=== PATIENT | male | born 1985 | race Caucasian/White ===

== ENCOUNTER 2020-06-27 15:00 | Emergency (ER) | payer OTHER ==
[2020-06-27 16:32] LABS: BASOPHIL 0.4 % (0-2); EOSINOPHIL 0.3 % (0-5); HCT 50.9 % (42.0-52.0); HGB 16.3 g/dl (13.2-18.0); LYMPHOCYTE 15.1 % (15-48); MCH 29.1 pg (25.0-31.0); MCV 90.7 fL (78.0-100.0); MONOCYTE 7.9 % (0-12); MPV 10.3 fL (6.0-9.5); NEUTROPHIL 75.6 % (41-80); NRBC 0; PLT 295 K/uL (150-400); RBC 5.61 M/uL (4.70-6.00); RDW 12.5 % (11.5-14.0)
[2020-06-27 16:33] LABS: ALBUMIN 3.8 g/dL (3.4-5.0); ALKALINE PHOSHATASE 105 U/L (46-116); ALT 54 U/L (16-63); AST 34 U/L (15-37); BILIRUBIN - TOTAL 0.2 mg/dL (0.2-1.0); BUN 14 mg/dL (7-18); BUN/CREAT RATIO (CALC) 13.5 RATIO; CHLORIDE 104 mmol/L (98-107); CO2 (BICARBONATE) 25 mmol/L (21-32); CREATININE 1.04 mg/dL (0.67-1.17); GLUCOSE 89 mg/dL (74-106); POTASSIUM 4.2 mmol/L (3.5-5.1); TOTAL PROTEIN 7.8 g/dL (6.4-8.2)
[2020-06-27 17:27] LABS: BILIRUBIN NEGATIVE (NEGATIVE); BLOOD NEGATIVE Ery/uL (NEGATIVE); CLARITY CLEAR (CLEAR); COLOR YELLOW (YELLOW); GLUCOSE (U) NORMAL (NORMAL); LEUKOCYTES NEGATIVE Leu/uL (NEGATIVE); NITRITE NEGATIVE (NEGATIVE); PROTEIN TRACE (LOW) mg/dL (NEGATIVE); SPECIFIC GRAVITY >=1.030 (1.001-1.030); UROBILINOGEN 0.2 mg/dL (0.2-1.0); pH 5.5 (5.0-9.0)
[2020-06-27 17:33] LABS: AMPHETAMINES NEGATIVE (NEGATIVE); BARBITURATES NEGATIVE (NEGATIVE); ECSTASY (MDMA) NEGATIVE (NEGATIVE); MARIJUANA (THC) NEGATIVE (NEGATIVE); METHADONE NEGATIVE (NEGATIVE); OPIATES NEGATIVE (NEGATIVE); OXYCODONE NEGATIVE (NEGATIVE)
[2020-06-27 17:36] LABS: BACTERIA TRACE; SPERM PRESENT; SQUAMOUS EPITHELIAL CELLS RARE; URINARY RBC RARE; URINARY WBC RARE
[2020-06-27] MEDS ORDERED: TEGRETOL200 MG PO (18:20)
== END 2020-06-27 19:09 | disposition home or self-care (01) ==
LOC: FER 15:00
PROVIDERS: Emergency Medicine
DX: S09.90XA Unspecified injury of head, initial encounter (principal); W50.0XXA Accidental hit or strike by another person, initial encounter; Y92.149 Unspecified place in prison as the place of occurrence of the external cause
CPT/HCPCS: 36415; 70450; 71045; 72125; 72128; 72131; 72170; 80053; 80305; 81001; 85025; G0480; J1953; J2060

== ENCOUNTER 2020-07-01 15:02 | Emergency (ER) | payer OTHER ==
[~2020-07-01 15:02] MED LIST: TEGRETOL200 MG PO
[2020-07-01 16:22] LABS: BILIRUBIN NEGATIVE (NEGATIVE); BLOOD 2+ Ery/uL (NEGATIVE); CLARITY CLEAR (CLEAR); COLOR YELLOW (YELLOW); GLUCOSE (U) NORMAL (NORMAL); LEUKOCYTES NEGATIVE Leu/uL (NEGATIVE); NITRITE NEGATIVE (NEGATIVE); PROTEIN NEGATIVE (NEGATIVE); UROBILINOGEN 0.2 mg/dL (0.2-1.0)
[2020-07-01 16:26] LABS: SQUAMOUS EPITHELIAL CELLS RARE
[2020-07-01 16:56] LABS: BASOPHIL 0.6 % (0-2); EOSINOPHIL 0.4 % (0-5); HCT 51.1 % (42.0-52.0); HGB 16.7 g/dl (13.2-18.0); LYMPHOCYTE 19.8 % (15-48); MCH 29.5 pg (25.0-31.0); MCHC 32.7 g/dL (32.0-36.0); MCV 90.3 fL (78.0-100.0); MONOCYTE 10.1 % (0-12); MPV 10.2 fL (6.0-9.5); NEUTROPHIL 68.8 % (41-80); NRBC 0; PLT 265 K/uL (150-400); RBC 5.66 M/uL (4.70-6.00); RDW 12.3 % (11.5-14.0); WBC 7.2 K/uL (4.0-10.5)
[2020-07-01 17:04] LABS: INR 1.06 (0.9-1.2); PROTHROMBIN TIME 13.1 SECONDS (11.4-13.6); PTT 27.3 SECONDS (22.2-34.7)
[2020-07-01 17:10] LABS: ALBUMIN 3.8 g/dL (3.4-5.0); ALKALINE PHOSHATASE 116 U/L (46-116); ALT 50 U/L (16-63); AST 30 U/L (15-37); BILIRUBIN - TOTAL 0.2 mg/dL (0.2-1.0); BUN 20 mg/dL (7-18); BUN/CREAT RATIO (CALC) 21.5 RATIO; CHLORIDE 104 mmol/L (98-107); CO2 (BICARBONATE) 27 mmol/L (21-32); CREATININE 0.93 mg/dL (0.67-1.17); GLOBULIN (CALCULATION) 4.7 g/dL; GLUCOSE 87 mg/dL (74-106); POTASSIUM 4.1 mmol/L (3.5-5.1); TOTAL PROTEIN 8.5 g/dL (6.4-8.2)
[2020-07-01 17:13] LABS: LACTIC ACID 0.9 mmol/L (0.4-1.9)
[2020-07-01 17:34] LABS: AMPHETAMINES NEGATIVE (NEGATIVE); BARBITURATES NEGATIVE (NEGATIVE); ECSTASY (MDMA) NEGATIVE (NEGATIVE); MARIJUANA (THC) NEGATIVE (NEGATIVE); METHADONE NEGATIVE (NEGATIVE); OPIATES NEGATIVE (NEGATIVE); OXYCODONE NEGATIVE (NEGATIVE)
== END 2020-07-01 18:50 ==
LOC: FER 15:02
PROVIDERS: Emergency Medicine
DX: G25.1 Drug-induced tremor (principal); T42.1X5A Adverse effect of iminostilbenes, initial encounter; G40.909 Epilepsy, unspecified, not intractable, without status epilepticus; F17.200 Nicotine dependence, unspecified, uncomplicated; Z79.899 Other long term (current) drug therapy; Z20.822 Contact with and (suspected) exposure to COVID-19
CPT/HCPCS: 36415; 70450; 71045; 80053; 80305; 81001; 83605; 85025; 85610; 85730; G0480; U0002

== ENCOUNTER 2020-12-17 06:47 | Emergency (ER) | payer OTHER ==
[2020-12-17] MEDS ORDERED: NORCO 5-325 TA1 EACH PO (07:29)
[2020-12-17] MEDS ORDERED: NAPROXEN500 MG PO (07:29)
== END 2020-12-17 07:51 | disposition home or self-care (01) ==
LOC: FER 06:47
DX: S83.412A Sprain of medial collateral ligament of left knee, initial encounter (principal); Z23 Encounter for immunization; F17.200 Nicotine dependence, unspecified, uncomplicated; X58.XXXA Exposure to other specified factors, initial encounter; Y93.67 Activity, basketball
CPT/HCPCS: 73564

== ENCOUNTER → 2021-01-19 | Day surgery (SDC) | payer OTHER ==
[~2021-01-19] VITALS: Ht 177.8 cm; Wt 68.0 kg
[~2021-01-19] MED LIST changes: +ASPIRIN325 MG PO; +NAPROXEN500 MG PO; +NORCO 5-325 TA1 EACH PO; +PERCOCET 5-3251 EACH PO
== END | disposition home or self-care (01) ==
LOC: FAS 11:55
DX: S83.512A Sprain of anterior cruciate ligament of left knee, initial encounter (principal); S76.112A Strain of left quadriceps muscle, fascia and tendon, initial encounter; M71.22 Synovial cyst of popliteal space [Baker], left knee; M25.462 Effusion, left knee; Y93.02 Activity, running
CPT/HCPCS: C1713; C1762; J0690; J1100; J2250; J2405; J2704; J2795; J3010; J7120